=== PATIENT | male | born 1930 | race Caucasian/White ===

== ENCOUNTER 2019-03-18 14:34 | Inpatient (IN) | payer MEDICARE, MEDICAID ==
[~2019-03-18] VITALS: Ht 172.7 cm; Wt 86.6 kg
[2019-03-18] VITALS (7 sets, daily range): BP systolic 153–177; BP diastolic 65–86
--- NOTE | 2019-03-18 14:53 | NUR ---
BIBA RA 41 From home "Increasing problems breathing worse today On home O2" [id number]. HAS 3 BREATHING TREATMENTS AT HOME, BUT INEFFECTIVE. HX OF COPD, O2 SAT 93% ON 4L O2 VIA NC. SINGAPOREAN-SPEAKING, AOX4, AMB, VSS, BREATHING EVENLY. NO ACUTE DISTRESS NOTED. ON MONITOR AND MADE COMFORTABLE. READY FOR EVAL.
[2019-03-18] MEDS ORDERED: ALBUTEROL FS 2.5 MG/3 ML VIAL.NEB NEB ONE (15:00)
[2019-03-18] MEDS ORDERED: FUROSEMIDE 40 MG/4 ML VIAL IV ONE (15:00)
[2019-03-18] MEDS ORDERED: methylPREDNISolone SOD SUCC 125 MG/2ML VIAL IV ONE (15:00)
[2019-03-18] MEDS ORDERED: IPRATROPIUM NEB FS 0.5 MG/2.5 ML AMPUL.NEB NEB ONE (15:00)
[2019-03-18] MEDS ORDERED: ALBUTEROL FS 2.5 MG/3 ML VIAL.NEB ONE (15:02)
[2019-03-18] MEDS ORDERED: IPRATROPIUM NEB FS 0.5 MG/2.5 ML AMPUL.NEB ONE (15:02)
[2019-03-18] MEDS ORDERED: FUROSEMIDE 40 MG/4 ML VIAL ONE (15:04)
[2019-03-18] MEDS ORDERED: methylPREDNISolone SOD SUCC 125 MG/2ML VIAL ONE (15:04)
--- NOTE | 2019-03-18 15:07 | NUR ---
RT AT BEDSIDE FOR BREATHING TX
[2019-03-18 15:22] LABS: BASOPHILS % (AUTO) 0.4 % (0.0-2.0); EOSINOPHILS % (AUTO) 1.7 % (0.0-6.0); HEMATOCRIT 36 % (39-51); HEMOGLOBIN 11.2 g/dL (13.5-17.5); LYMPHOCYTES % (AUTO) 23.1 % (20.0-44.0); MEAN CORPUSCULAR HGB CONC 32 g/dl (31.0-36.0); MEAN CORPUSCULAR VOLUME 92 fL (80-96); MONOCYTES # (AUTO) 0.3 /CMM (0.1-1.30); MONOCYTES % (AUTO) 5.9 % (2.0-12.0); NEUTROPHILS # (AUTO) 3.1 /CMM (1.8-8.9); NEUTROPHILS % (AUTO) 68.9 % (43.0-81.0); PLATELET COUNT (AUTO) 131 /CMM (150-450); RED BLOOD CELL COUNT(AUTO) 3.85 MIL/uL (4.5-6.0); WHITE BLOOD COUNT (AUTO) 4.4 K/uL (4.3-11.0)
[2019-03-18 15:30] LABS: CALCIUM, SERUM 8.3 mg/dL (8.5-10.1); CARBON DIOXIDE 29 mmol/L (21-32); CHLORIDE 109 mmol/L (98-107); GLUCOSE 126 mg/dL (74-106); POTASSIUM 4.4 mmol/L (3.5-5.1); SODIUM SERUM 145 mmol/L (136-145); UREA NITROGEN, BLOOD 33 mg/dL (7-18)
[2019-03-18] MEDS ORDERED: DEXL60CA3 PO (15:32)
[2019-03-18] MEDS ORDERED: GEMF600T5 PO (15:32)
[2019-03-18] MEDS ORDERED: HYDR12.5 PO (15:32)
[2019-03-18] MEDS ORDERED: MECL-102 PO (15:32)
[2019-03-18] MEDS ORDERED: ISOS60TA4 PO (15:32)
[2019-03-18] MEDS ORDERED: ATEN25TA PO (15:32)
[2019-03-18] MEDS ORDERED: ASPI-605 PO (15:32)
[2019-03-18] MEDS ORDERED: GABA-534 PO (15:32)
[2019-03-18] MEDS ORDERED: DICY10SO PO (15:32)
[2019-03-18] MEDS ORDERED: RANO500T3 PO (15:32)
[2019-03-18] MEDS ORDERED: CHOL10002 PO (15:32)
[2019-03-18] MEDS ORDERED: LUBI24CA5 PO (15:32)
[2019-03-18] MEDS ORDERED: ALLO100T PO (15:32)
[2019-03-18] MEDS ORDERED: CLOP75TA15 PO (15:32)
[2019-03-18] MEDS ORDERED: FINA5TAB11 PO (15:32)
[2019-03-18] MEDS ORDERED: LOSA25TA27 PO (15:32)
[2019-03-18] MEDS ORDERED: ROSU20TA2 PO (15:32)
[2019-03-18] MEDS ORDERED: MONT10TA22 PO (15:32)
[2019-03-18] MEDS ORDERED: FURO-144 PO (15:32)
[2019-03-18] MEDS ORDERED: THEO300T22 PO (15:32)
[2019-03-18 15:43] LABS: ALANINE AMINOTRANSFERASE 20 U/L (12-78); ALBUMIN 2.9 g/dL (3.4-5.0); ALKALINE PHOSPHATASE 87 U/L (46-116); ASPARTATE AMINOTRANSFERASE 18 U/L (15-37); B-TYPE NATRIURETIC PEPTIDE 13803 PG/ML (0-125); BILIRUBIN,DIRECT 0.1 mg/dL (0.0-0.2); BILIRUBIN,TOTAL 0.3 mg/dL (0.2-1.0); TOTAL PROTEIN, SERUM 6.2 g/dL (6.4-8.2)
--- NOTE | 2019-03-18 16:00 | NUR ---
PER SON, PT STATES NO IMPROVEMENT. NOTIFIED
--- NOTE | 2019-03-18 16:32 | NUR ---
ICU OVERFLOW 253
--- NOTE | 2019-03-18 17:12 | NUR ---
REPORT GIVEN TO DEBRA ALLISON FOR ICU OVERFLOW 253 Addendum: 03/18/19 at 1747 by SUDEEP TELE
--- NOTE | 2019-03-18 17:18 | NUR ---
CALLED [employer] PAGED TRANSMISSION AND COORDINATION ENGINEER
--- NOTE | 2019-03-18 18:08 | NUR ---
[facility]
--- NOTE | 2019-03-18 18:15 | NUR ---
RECEIVED PATIENT FROM ER. OVERFLOW ICU WITH TELE ADMISSION. TELE NSR. STABLE ON LOW FLOW 02. AMBULATORY WITHOUT COMPLICATIONS. NO S/S ACUTE DISTRESS NOTED. PATIENT A/OX3. PER DAUGHTER AND SON AT BEDSIDE PATIENT HAS A HISTORY OF LYMPLHEDEMA AND THE SWELLING IN HIS LEGS IS HIS USUAL AND NO WORSE THAN THEY REMEMBER. BLUE ELEVATED ON PILLOWS. PATIENT CALM AND COOPERATIVE. SKIN, SAFETY, ASPIRATION PRECAUTIONS IN PLACE AND WILL MONITOR
[2019-03-18] MEDS: DICYCLOMINE HCL 10 MG CAPSULE PO SCH (18:59)
--- NOTE | 2019-03-18 19:00 | NUR ---
NOTIFIED DR GROSSMAN PATIENT BP ELEVATED. PER DR GROSSMAN OK FOR HYDRALAZINE PRN IVP 20MG Q6H FOR SBP OVER 150. CARE ENDORSED TO RN TRANG FOR KIRK. PATIENT STABLE. TOLERATING LOW FLOW NC. NO S/S DISTRESS NOTED. SKIN, SAFETY, ASPIRATION PRECAUTIONS IN PLACE AND MONITORED.
--- NOTE | 2019-03-18 19:00 | NUR ---
TROLLEY COLLECTOR INITIAL SHIFT NOTES RECEIVED PATIENT IN BED, AWAKE, ALERT AND ORIENTED X3, ABLE TO VERBALIZE NEEDS, ROMANSH SPEAKING. PATIENT'S DAUGHTER LINDA AT BEDSIDE, ABLE TO TRANSLATE. PLAN OF CARE DISCUSSED WITH BOTH PATIENT AND HIS DAUGHTER, ALL QUESTIONS ANSWERED, BOTH VERBALIZING UNDERSTANDING REGARDING THE CURRENT PLAN. ON O2 VIA NC @ 3LPM, TOLERATING WELL, NO S/S OF RESPIRATORY DISTRESS, PATIENT VERBALIZING SLIGHT IMPROVEMENT IN BREATHING STATUS SINCE ARRIVAL TO HOSPITAL. BEDSIDE MONITOR SHOWS SINUS RHYTHM WITH BBB, HR 80 BPM. PER FAMILY, NO JAEGER CATHETER INSERTION, PATIENT ABLE TO UTILIZE URINAL. BLE NOTED WITH PITTING EDEMA. PER PATIENT'S FAMILY, THIS IS THE PATIENT'S BASELINE. BLE ELEVATED WITH PILLOWS. CALL LIGHT LEFT WITHIN EASY REACH, BED IN LOWEST AND LOCKED POSITION. WILL COTNINUE TO CLOSELY MONITOR
[2019-03-18] MEDS ORDERED: hydrALAZINE HCL IV 20 MG VIAL IV PRN (19:30)
--- NOTE | 2019-03-18 19:40 | NUR ---
CHARACTER IMPERSONATOR NOTES CALLED PHARMACY X2 REGARDING HYDRALAZINE IV ORDER THAT NEEDS TO BE VERIFIED, CURRENT BP 177/81. AWAITING VERIFICATION FROM PHARMACY SO THAT MEDICATION CAN BE PULLED FROM OMNICELL AND ADMINISTERED.
[2019-03-18] MEDS: IPRATROPIUM NEB FS 0.5 MG/2.5 ML AMPUL.NEB NEB SCH (20:00)
[2019-03-18] MEDS: ALBUTEROL FS 2.5 MG/0.5 ML VIAL.NEB NEB SCH (20:00)
--- NOTE | 2019-03-18 22:45 | NUR ---
RN NOTES PATIENT TRANSFERRED TO 1ST FLOOR TELEMETRY, ROOM 117-2, VIA ACLS PROTOCOL. CALLED AND SPOKE TO VAHE'S DAUGHTER LINDA, MADE AWARE REGARDING TRANSFER OUT OF ICU. WILL CONTINUE TO CLOSELY MONITOR THE PATIENT
[2019-03-19] VITALS (7 sets, daily range): BP systolic 135–169; BP diastolic 60–78
[2019-03-19] MEDS: ALBUTEROL FS 2.5 MG/0.5 ML VIAL.NEB NEB SCH ×4 (01:23→20:02)
[2019-03-19] MEDS: IPRATROPIUM NEB FS 0.5 MG/2.5 ML AMPUL.NEB NEB SCH ×4 (01:24→20:02)
--- NOTE | 2019-03-19 06:30 | NUR ---
RN NOTES PATIENT NOTED TO WAKE UP, CONFUSED AT THIS TIME, AGITATED. GERMAN SPEAKING STAFF AT BEDSIDE TO AID IN TRANSLATION. AFTER ALL QUESTIONS ANSWERED AND PLAN OF CARE DISCUSSED, PATIENT CALMED DOWN, AND WENT BACK TO BED. TELE MONITOR CONTINUES TO READ SINUS RHYTHM WITH BBB. WILL ENDORSE PATIENT TO THE AM SHIFT NURSE FOR CONTINUITY OF CARE
--- NOTE | 2019-03-19 07:30 | NUR ---
RN NOTE: RECEIVED PATIENT IN BED, AWAKE, ALERT AND VERBALLY RESPONSIVE. RESPIRATION EVEN AND UNLABORED ON O2 3L/MIN VIA NC SATURATING 95%. DENIED ANY PAIN. PATIENT ABLE TO AMBULATE WITH ASSISTANCE IN THE BATHROOM, BUT OFFERED TO USE THE URINAL. PATIENT AGREED TO IT. (R) FOREARM AND (L) FOREARM IV SITE NOTED PATENT AND INTACT. ON ELECTRO MECHANICAL ENGINEER SR WITH BBB HR= 90. HOB ELEVATED. BED ALARMED AND LOCKED AT ALL TIMES AND ON LOWEST POSITION. AFEBRILE. SKIN WARM TO TOUCH. CALL LIGHT WITHIN REACH. NEEDS ANTICIPATED.
[2019-03-19 08:02] LABS: BASOPHILS % (AUTO) 0.1 % (0.0-2.0); EOSINOPHILS % (AUTO) 0.1 % (0.0-6.0); HEMATOCRIT 33 % (39-51); HEMOGLOBIN 10.6 g/dL (13.5-17.5); LYMPHOCYTES # (AUTO) 0.5 /CMM (0.8-4.8); LYMPHOCYTES % (AUTO) 12.3 % (20.0-44.0); MEAN CORPUSCULAR HGB CONC 33 g/dl (31.0-36.0); MEAN CORPUSCULAR VOLUME 90 fL (80-96); MONOCYTES # (AUTO) 0.3 /CMM (0.1-1.30); NEUTROPHILS # (AUTO) 3.6 /CMM (1.8-8.9); NEUTROPHILS % (AUTO) 81.5 % (43.0-81.0); PLATELET COUNT (AUTO) 159 /CMM (150-450); RED BLOOD CELL COUNT(AUTO) 3.64 MIL/uL (4.5-6.0); WHITE BLOOD COUNT (AUTO) 4.4 K/uL (4.3-11.0)
[2019-03-19 08:22] LABS: ALANINE AMINOTRANSFERASE 21 U/L (12-78); ALBUMIN 3.1 g/dL (3.4-5.0); ALKALINE PHOSPHATASE 79 U/L (46-116); ASPARTATE AMINOTRANSFERASE 17 U/L (15-37); BILIRUBIN,TOTAL 0.3 mg/dL (0.2-1.0); CALCIUM, SERUM 8.6 mg/dL (8.5-10.1); CARBON DIOXIDE 28 mmol/L (21-32); CHLORIDE 108 mmol/L (98-107); CREATININE 2.3 mg/dL (0.6-1.3); GLUCOSE 123 mg/dL (74-106); MAGNESIUM 1.7 mg/dL (1.8-2.4); PHOSPHORUS 4.2 mg/dL (2.5-4.9); POTASSIUM 4.4 mmol/L (3.5-5.1); SODIUM SERUM 144 mmol/L (136-145); TOTAL PROTEIN, SERUM 6.3 g/dL (6.4-8.2); UREA NITROGEN, BLOOD 34 mg/dL (7-18)
[2019-03-19] MEDS: PANTOPRAZOLE 40 MG TABLET.DR PO SCH (08:25)
[2019-03-19] MEDS ORDERED: ATENOLOL 25 MG TABLET PO SCH (09:00)
[2019-03-19] MEDS ORDERED: THEOPHYLLINE ANHYDROUS 300 MG TAB.SR.12H PO SCH (09:00)
[2019-03-19] MEDS ORDERED: FUROSEMIDE 40 MG/4 ML VIAL IV SCH (09:00)
[2019-03-19] MEDS ORDERED: FUROSEMIDE 40 MG TABLET PO SCH (09:00)
[2019-03-19] MEDS: methylPREDNISolone SOD SUCC 125 MG/2ML VIAL IV SCH ×3 (09:55→17:26)
[2019-03-19] MEDS: MECLIZINE HCL 25 MG TABLET PO SCH ×2 (09:56→17:26)
[2019-03-19] MEDS: DICYCLOMINE HCL 10 MG CAPSULE PO SCH ×2 (09:56→17:27)
[2019-03-19] MEDS: ASPIRIN EC 81 MG TABLET.DR PO SCH (09:56)
[2019-03-19] MEDS: LOSARTAN POTASSIUM 25 MG TABLET PO SCH ×2 (09:57→17:28)
[2019-03-19] MEDS: GABAPENTIN 300 MG CAPSULE PO SCH ×2 (09:57→17:29)
[2019-03-19] MEDS: FINASTERIDE (5 MG) 5 MG TABLET PO SCH (09:57)
[2019-03-19] MEDS: CHOLECALCIFEROL 1,000 UNIT TABLET (VIT D3) PO SCH ×2 (09:57→17:27)
[2019-03-19] MEDS: CLOPIDOGREL BISULFATE 75 MG TABLET PO SCH (09:58)
[2019-03-19] MEDS: ATORVASTATIN 40 MG TABLET PO SCH (09:58)
[2019-03-19] MEDS: ALLOPURINOL 100 MG TABLET PO SCH ×2 (09:58→17:27)
[2019-03-19] MEDS: MONTELUKAST SODIUM (10MG) 10 MG TABLET PO SCH (09:58)
[2019-03-19] MEDS: GEMFIBROZIL 600 MG TABLET PO SCH ×2 (09:58→17:27)
[2019-03-19] MEDS: ISOSORBIDE MONONITRATE (30MG) 30 MG TAB.SR.24H PO SCH (09:59)
[2019-03-19] MEDS: HYDROCHLOROTHIAZIDE 25 MG TABLET PO SCH (10:02)
[2019-03-19] MEDS: Magnesium 1GM/D5W 100ML PREMIX 100 ML IV SCH ×2 (10:53→11:57)
[2019-03-19] MEDS: FUROSEMIDE 100 MG/10 ML VIAL IV SCH ×3 (10:56→17:27)
[2019-03-19 11:23] LABS: THYROID STIMULATING HORMONE 2.375 uIU/mL (0.358-3.74)
[2019-03-19] MEDS: CARVEDILOL 12.5 MG TABLET PO SCH ×2 (11:55→20:40)
[2019-03-19] MEDS: hydrALAZINE HCL 50 MG TABLET PO SCH ×3 (11:55→17:28)
[2019-03-19] MEDS ORDERED: BISACODYL SUPP (10 MG) 10 MG/SUPP.RECT SUPP.RECT RC PRN (12:00)
[2019-03-19] MEDS ORDERED: PHENYLEPHRINE/SHARK LIVER 1 EA SUPP.RECT RC ONE (12:00)
[2019-03-19] MEDS ORDERED: POLYETHYLENE GLYCOL 3350 17 GM POWD.PACK PO ONE (12:00)
[2019-03-19 14:31] LABS: CREATININE, URINE 98.9 MG/DL (30.0-125.0); URINE TOTAL PROTEIN 68.1 mg/dL (0-11.9)
[2019-03-19 14:49] LABS: APPEARANCE,URINE CLEAR (CLEAR); BILIRUBIN,URINE NEGATIVE (NEGATIVE); BLOOD, URINE NEGATIVE Ery/uL (NEGATIVE); COLOR,URINE YELLOW (YELLOW); KETONES,URINE NEGATIVE (NEGATIVE); LEUKOCYTE ESTERASE ,URINE NEGATIVE (NEGATIVE); NITRITE, URINE NEGATIVE (NEGATIVE); PH,URINE 5.5 (5.0-8.0); PROTEIN,URINE 2+ mg/dl (NEGATIVE); UGLUCOSE NEGATIVE (NEGATIVE); UROBILINOGEN,URINE 0.2 EU/dL (0.2)
[2019-03-19 15:02] LABS: BACTERIA,URINE Rare /HPF (None Seen); MUCUS,URINE Moderate /LPF (None Seen); RBC,URINE NONE SEEN /HPF (0-2); SQUAMOUS EPITHELIAL CELL,UR None Seen /HPF (None Seen); WBC,URINE NONE SEEN /HPF (0-3)
[2019-03-19 16:10] LABS: EOSINOPHIL,URINE None Seen
--- NOTE | 2019-03-19 17:20 | NUR ---
RN NOTE: SPOKE WITH JONAS, PHARMACIST AND INFORMED HIM THAT ACCORDING TO THE PATIENT'S SON HE CAN BRING RANEXA AND AMITIZA FROM HOME.
--- NOTE | 2019-03-19 18:00 | NUR ---
RN NOTE: RECEIVED THE RANEXA AND AMITIZA HOME MEDICATION BOTTLES FROM THE PATIENT'S SON. CALLED AND SPOKE WITH JONAS, PHARMACIST AND SENT THE 2 HOME MEDICATIONS TO THE PHARMACY.
--- NOTE | 2019-03-19 18:49 | NUR ---
RN NOTE: CALLED AND SPOKE WITH JONAS, PHARMACIST AND MADE HIM AWARE THAT THE PATIENT'S DOSE OF RANEXA WAS STILL NOT ON HANDED. PER JONAS, HE WILL SEND THE PLATFORM BUILDER TO BRING THE DOSE IN THE UNIT.
[2019-03-19] MEDS: LUBIPROSTONE 24 MCG PO SCH (18:54)
[2019-03-19] MEDS: RANOLAZINE 500 MG PO SCH (18:54)
--- NOTE | 2019-03-19 19:20 | NUR ---
RN NOTE: BEDSIDE REPORT GIVEN TO PM SHIFT NURSE FOR CONTINUITY OF CARE. DAUGHTER PRESENT AT THE BEDSIDE. PATIENT HAD A ONE TIME BOWEL MOVEMENT DURING THE SHIFT AND PATIENT ON STABLE CONDITION.
--- NOTE | 2019-03-19 19:30 | NUR ---
RN NOTE: PATIENT IN BED, AWAKE, ARMINIAN SPEAKING. DAUGHTER AT BED SIDE. PATIENT NOTED WITH NO S/S OF ACUTE DISTRESS. RESPIRATION EVEN AND UNLABORED ON O2 3L/MIN VIA NC SATURATING 95%. NO SOB NOTED. DENIED ANY PAIN OR DISCOMFORT AT THIS TIME. RFA AND LFA IV SITES NOTED WITH NO S/S OF INFECTION. FLUSHED AT THIS TIME. ON BUILDING CONSTRUCTION SUPERVISOR SR WITH BBB HR AT 80. SAFETY MAINTAINED, BED AT THE LOWEST POSITION, LOCKED, BED ALARM ON. CALL LIGHT WITHIN REACH. WILL CONTINUE TO MONITOR PATIENT PER PLAN OF CARE.
[2019-03-20] VITALS: BP 154/64
[2019-03-20] MEDS: ALBUTEROL FS 2.5 MG/0.5 ML VIAL.NEB NEB SCH ×2 (01:53→07:27)
[2019-03-20] MEDS: IPRATROPIUM NEB FS 0.5 MG/2.5 ML AMPUL.NEB NEB SCH ×2 (01:53→07:27)
[2019-03-20 04:00] VITALS: BP_SYST 138; BP_SYST 151; BP_DIAS 70; BP_DIAS 72
--- NOTE | 2019-03-20 05:03 | NUR ---
ENDORSE TO THE NURSE FOR KIRK
--- NOTE | 2019-03-20 05:05 | NUR ---
RN Notes Received patient awake, alert and oriented x3 with periods of confusion. Telemonitor reads Sinus rhythm with BBB with heart rate of 80. Denies SOB, pain, nausea and vomiting. HOB elevated, on room air and tolerated well. IV access on right forearm and left forearm patent and intact. Patient constantly getting out of bed, gait wobbly and unsteady, bed alarm on and fall precaution in place. Will continue to monitor and will endorse accordingly.
[2019-03-20 07:02] LABS: BASOPHILS % (AUTO) 0.1 % (0.0-2.0); HEMATOCRIT 30 % (39-51); HEMOGLOBIN 9.5 g/dL (13.5-17.5); LYMPHOCYTES # (AUTO) 0.4 /CMM (0.8-4.8); LYMPHOCYTES % (AUTO) 11.7 % (20.0-44.0); MEAN CORPUSCULAR HGB CONC 32 g/dl (31.0-36.0); MEAN CORPUSCULAR VOLUME 90 fL (80-96); MONOCYTES # (AUTO) 0.1 /CMM (0.1-1.30); MONOCYTES % (AUTO) 4.3 % (2.0-12.0); NEUTROPHILS # (AUTO) 2.8 /CMM (1.8-8.9); NEUTROPHILS % (AUTO) 83.9 % (43.0-81.0); PLATELET COUNT (AUTO) 122 /CMM (150-450); RED BLOOD CELL COUNT(AUTO) 3.31 MIL/uL (4.5-6.0); WHITE BLOOD COUNT (AUTO) 3.4 K/uL (4.3-11.0)
[2019-03-20 07:29] LABS: ALANINE AMINOTRANSFERASE 20 U/L (12-78); ALBUMIN 2.9 g/dL (3.4-5.0); ALKALINE PHOSPHATASE 73 U/L (46-116); ASPARTATE AMINOTRANSFERASE 17 U/L (15-37); BILIRUBIN,TOTAL 0.3 mg/dL (0.2-1.0); CALCIUM, SERUM 8.1 mg/dL (8.5-10.1); CARBON DIOXIDE 29 mmol/L (21-32); CHLORIDE 106 mmol/L (98-107); CREATININE 2.2 mg/dL (0.6-1.3); GLUCOSE 140 mg/dL (74-106); MAGNESIUM 1.9 mg/dL (1.8-2.4); PHOSPHORUS 4.2 mg/dL (2.5-4.9); SODIUM SERUM 144 mmol/L (136-145); TOTAL PROTEIN, SERUM 5.8 g/dL (6.4-8.2); UREA NITROGEN, BLOOD 44 mg/dL (7-18)
--- NOTE | 2019-03-20 07:47 | NUR ---
RN NOTE: RECEIVED BEDSIDE REPORT NO SIGNS OR SYMPTOMS OF RESPIRATORY DISTRESS RESPIRATION EVEN AND UNLABORED ON O2 3L/MIN VIA NC SATURATING 95%. DENIED ANY PAIN.(R) FOREARM AND (L) FOREARM IV SITE NOTED PATENT AND INTACT SALINE LOCK ON HAND SUTURE WINDER SR WITH BBB HR= 90. HOB ELEVATED. BED ALARMED AND LOCKED AT ALL TIMES AND ON LOWEST POSITION.CALL LIGHT WITHIN REACH. WILL CONT TO MONITOR ACCORDINGLY
[2019-03-20 08:00] VITALS: BP 165/71
[2019-03-20 08:12] LABS: CREATINE KINASE, TOTAL 51 U/L (39-308)
[2019-03-20] MEDS: PANTOPRAZOLE 40 MG TABLET.DR PO SCH (08:49)
[2019-03-20] MEDS: LOSARTAN POTASSIUM 25 MG TABLET PO SCH (08:50)
[2019-03-20] MEDS: GEMFIBROZIL 600 MG TABLET PO SCH (08:50)
[2019-03-20] MEDS: HYDROCHLOROTHIAZIDE 25 MG TABLET PO SCH (08:51)
[2019-03-20] MEDS: MONTELUKAST SODIUM (10MG) 10 MG TABLET PO SCH (08:51)
[2019-03-20] MEDS: ISOSORBIDE MONONITRATE (30MG) 30 MG TAB.SR.24H PO SCH (08:51)
[2019-03-20] MEDS: FINASTERIDE (5 MG) 5 MG TABLET PO SCH (08:52)
[2019-03-20] MEDS: GABAPENTIN 300 MG CAPSULE PO SCH (08:52)
[2019-03-20] MEDS: ASPIRIN EC 81 MG TABLET.DR PO SCH (08:52)
[2019-03-20] MEDS: MECLIZINE HCL 25 MG TABLET PO SCH (08:52)
[2019-03-20] MEDS: DICYCLOMINE HCL 10 MG CAPSULE PO SCH (08:52)
[2019-03-20] MEDS: ATORVASTATIN 40 MG TABLET PO SCH (08:52)
[2019-03-20] MEDS: CARVEDILOL 12.5 MG TABLET PO SCH (08:52)
[2019-03-20] MEDS: CLOPIDOGREL BISULFATE 75 MG TABLET PO SCH (08:52)
[2019-03-20] MEDS: hydrALAZINE HCL 50 MG TABLET PO SCH (08:52)
[2019-03-20] MEDS: CHOLECALCIFEROL 1,000 UNIT TABLET (VIT D3) PO SCH (08:53)
[2019-03-20] MEDS: ALLOPURINOL 100 MG TABLET PO SCH (08:53)
[2019-03-20] MEDS: methylPREDNISolone SOD SUCC 125 MG/2ML VIAL IV SCH ×2 (08:53→13:18)
[2019-03-20] MEDS: RANOLAZINE 500 MG PO SCH (08:55)
[2019-03-20] MEDS: LUBIPROSTONE 24 MCG PO SCH (08:55)
[2019-03-20] MEDS: FUROSEMIDE 100 MG/10 ML VIAL IV SCH ×2 (10:49→15:09)
[2019-03-20 12:00] VITALS: BP 155/66
[2019-03-20] MEDS ORDERED: HEPARIN SODIUM, PORCINE 5000 UNITS/1 ML VIAL SQ SCH (12:00)
[2019-03-20] MEDS ORDERED: hydrALAZINE HCL 50 MG TABLET PO SCH (13:00)
[2019-03-20 13:18] VITALS: BP 155/66
--- NOTE | 2019-03-20 13:19 | NUR ---
HEPARIN HELD D/Y LOW H&H AND PLATELETS
[2019-03-20] MEDS ORDERED: ALBUTEROL FS 2.5 MG/0.5 ML VIAL.NEB NEB SCH (15:30)
[2019-03-20] MEDS ORDERED: IPRATROPIUM NEB FS 0.5 MG/2.5 ML AMPUL.NEB NEB SCH (15:30)
--- NOTE | 2019-03-20 15:55 | NUR ---
SUPERVISOR FARM EQUIPMENT MAINTENANCE NOTES PATIENT RECEIVED DISCHARGE ORDERS AND EXIT CARE UTILIZED AND EXPLAINED TO SON. ALL HOME MEDICATION RETURNED TO PATIENT AND GIVEN TO SON.PATIENT REFUSED PHOTOS OF BILATERAL LOWER LEGS. IV TO LEFT FA # 20 GAUGE REMOVED CATH INTACT PRESSURE APPLIED WITH MINIMAL BLEEDING NOTED. IV TO RFA # 20 GAUGE REMOVED CATH INTACT PRESSURE APPLIED AND MINIMAL BLEEDING NOTED. PATIENT STABLE LAFT UNIT IN W/C AND ESCORTED BY RN TO PRIVATE VEHICLE.
--- NOTE | 2019-03-21 07:50 | NUR ---
ECHO REPORT IS DONE AWAITING FOR REPORT TO CROSS OVER TO [facility].
[2019-03-21 20:40] LABS: *SPE A/G RATIO 1.3 (0.7-1.7); *SPE ALBUMIN 3.1 g/dL (2.9-4.4); *SPE ALPHA-1-GLOBULIN 0.3 g/dL (0.0-0.4); *SPE ALPHA-2-GLOBULIN 0.8 g/dL (0.4-1.0); *SPE BETA GLOBULIN 0.8 g/dL (0.7-1.3); *SPE GLOBULIN, TOTAL 2.4 g/dL (2.2-3.9); *SPE M-SPIKE 0.1 g/dL (Not Observed); *SPEGAMMA GLOBULIN 0.6 g/dL (0.4-1.8)
== END 2019-03-20 15:50 | disposition home health service (06) | DRG 189 ==
LOC: ER 14:39 → ICU 16:49 → TELE1 22:50
PROVIDERS: ADMIT Internal Medicine; ATTEND Nurse Practitioner Acute Care
DX: J96.01 Acute respiratory failure with hypoxia (principal); I50.33 Acute on chronic diastolic (congestive) heart failure; I13.0 Hypertensive heart and chronic kidney disease with heart failure and stage 1 through stage 4 chronic kidney disease, or unspecified chronic kidney disease; J44.1 Chronic obstructive pulmonary disease with (acute) exacerbation; N17.9 Acute kidney failure, unspecified; I25.10 Atherosclerotic heart disease of native coronary artery without angina pectoris; E78.5 Hyperlipidemia, unspecified; Z99.81 Dependence on supplemental oxygen; F17.200 Nicotine dependence, unspecified, uncomplicated; N18.9 Chronic kidney disease, unspecified; Z79.82 Long term (current) use of aspirin; Z95.1 Presence of aortocoronary bypass graft; D64.9 Anemia, unspecified; R73.9 Hyperglycemia, unspecified; I89.0 Lymphedema, not elsewhere classified
CPT/HCPCS: 36415; 71045-TC; 76770-TC; 80048-TC; 80053-TC; 80061-TC; 80076-TC; 81000-TC; 82550-TC; 82570-TC; 82728-TC; 83540-TC; 83605-TC; 83735-TC; 83880; 83970; 84100-TC; 84155; 84155-TC; 84165; 84300-TC; 84439-TC; 84443-TC; 84484-TC; 85025-TC; 87040-TC; 87081-TC; 93307-TC; 97116-TC; 97530-TC; G0378; J0360; J1940; J2930; J3475; J8597

== ENCOUNTER 2019-07-31 16:40 | Emergency (ER) | payer MEDICARE, MEDICAID ==
[~2019-07-31] VITALS: Ht 172.7 cm; Wt 86.6 kg
[~2019-07-31 16:40] MED LIST: ALLO100T PO; ASPI-605 PO; ATEN25TA PO; CHOL10002 PO; CLOP75TA15 PO; DEXL60CA3 PO; DICY10SO PO; FINA5TAB11 PO; FURO-144 PO; GABA-534 PO; GEMF600T5 PO; HYDR12.5 PO; ISOS60TA4 PO; LOSA25TA27 PO; LUBI24CA5 PO; MECL-102 PO; MONT10TA22 PO; RANO500T3 PO; ROSU20TA2 PO; THEO300T22 PO
[2019-07-31 16:48] VITALS: BP 110/60
--- NOTE | 2019-07-31 16:49 | NUR ---
BIB son "abdominal pain started couple hours ago." PT AAOX4, -SOB, NAD NOTED, VSS ,PENDING MD MARTE
[2019-07-31 17:15] LABS: BASOPHILS % (AUTO) 0.4 % (0.0-2.0); EOSINOPHILS % (AUTO) 2.7 % (0.0-6.0); HEMATOCRIT 36 % (39-51); HEMOGLOBIN 11.3 g/dL (13.5-17.5); LYMPHOCYTES # (AUTO) 0.9 /CMM (0.8-4.8); LYMPHOCYTES % (AUTO) 11.3 % (20.0-44.0); MEAN CORPUSCULAR HGB CONC 32 g/dl (31.0-36.0); MEAN CORPUSCULAR VOLUME 90 fL (80-96); MONOCYTES # (AUTO) 0.6 /CMM (0.1-1.30); MONOCYTES % (AUTO) 7.1 % (2.0-12.0); NEUTROPHILS # (AUTO) 6.6 /CMM (1.8-8.9); NEUTROPHILS % (AUTO) 78.5 % (43.0-81.0); PLATELET COUNT (AUTO) 108 /CMM (150-450); RED BLOOD CELL COUNT(AUTO) 3.95 MIL/uL (4.5-6.0); WHITE BLOOD COUNT (AUTO) 8.4 K/uL (4.3-11.0)
[2019-07-31 17:34] LABS: ALANINE AMINOTRANSFERASE 20 U/L (12-78); ALBUMIN 3.2 g/dL (3.4-5.0); ALKALINE PHOSPHATASE 85 U/L (46-116); ASPARTATE AMINOTRANSFERASE 10 U/L (15-37); BILIRUBIN,DIRECT 0.1 mg/dL (0.0-0.2); BILIRUBIN,TOTAL 0.4 mg/dL (0.2-1.0); CARBON DIOXIDE 31 mmol/L (21-32); CHLORIDE 106 mmol/L (98-107); CREATININE 1.9 mg/dL (0.6-1.3); GLUCOSE 112 mg/dL (74-106); POTASSIUM 4.3 mmol/L (3.5-5.1); SODIUM SERUM 144 mmol/L (136-145); TOTAL PROTEIN, SERUM 6.3 g/dL (6.4-8.2); UREA NITROGEN, BLOOD 40 mg/dL (7-18)
--- NOTE | 2019-07-31 17:49 | NUR ---
Called RT for breathing treatment. Dr Saul at for an udpate and re-eval.
--- NOTE | 2019-07-31 18:01 | NUR ---
Patient discharged to home in stable condition. Written and verbal after care instructions given. Patient verbalizes understanding of instruction.
== END 2019-07-31 18:29 | disposition home or self-care (01) ==
LOC: ER 16:42
DX: K57.32 Diverticulitis of large intestine without perforation or abscess without bleeding (principal); E78.00 Pure hypercholesterolemia, unspecified; J44.9 Chronic obstructive pulmonary disease, unspecified; Z95.1 Presence of aortocoronary bypass graft; Z79.899 Other long term (current) drug therapy; Z79.82 Long term (current) use of aspirin
CPT/HCPCS: 36415; 80048-TC; 80076-TC; 85025-TC